=== PATIENT | female | born 1990 | race Caucasian/White ===

== ENCOUNTER 2017-05-07 07:00 | Emergency (ER) | payer OTHER ==
[~2017-05-07] VITALS: Ht 160 cm; Wt 54.5 kg
[~2017-05-07 07:00] MED LIST: ACET50TA PO; PRENTAB55 PO
[2017-05-07] MEDS ORDERED: ASCO25TA PO (07:19)
[2017-05-07] MEDS ORDERED: IRON65TA PO (07:19)
[2017-05-07 07:40] LABS: CONTROL LINE UCG INT CTR LINE PRESENT
[2017-05-07] MEDS ORDERED: KETOROLAC 30 MG/ML VIAL (J1885) IM ONE (08:00)
[2017-05-07] MEDS ORDERED: CIPR-249 PO (09:06)
[2017-05-07] MEDS ORDERED: CIPROFLOXACIN 500 MG TAB PO ONE (09:15)
[2017-05-07 09:16] VITALS: BP 142/71
--- NOTE | 2017-05-08 14:09 | REP ---
Urinary tract sonogram: History: Left lower back pain. Question stone versus pyelonephritis. Possible UTI. Comparison: No comparison study. Findings: Scanning at the level of the urinary bladder shows no abnormality. Renal cortical echogenicity pattern is normal bilaterally and contours are smooth. There is no evidence of hydronephrosis, cyst, mass, or calculus in either kidney. The right kidney measures 10.7 x 4.7 x 3.5 cm. Left renal dimensions are 10.3 x 4.5 x 5.4 cm. Impression: Normal urinary tract sonography. Signed by Michele Multani MD 05/07/2017 08:31 A
== END 2017-05-07 09:24 | disposition home or self-care (01) ==
LOC: M ED 07:00
DX: N39.0 Urinary tract infection, site not specified (principal); Z87.442 Personal history of urinary calculi; Z79.899 Other long term (current) drug therapy

== ENCOUNTER → 2017-06-15 | Outpatient (CLI) | payer OTHER ==
[~2017-06-15] MED LIST changes: +ASCO25TA PO; +CIPR-249 PO; +IRON65TA PO
--- NOTE | 2017-06-15 13:57 | REP ---
BILATERAL DIAGNOSTIC MAMMOGRAM AND BREAST ULTRASOUND: Bilateral mammography performed in the MLO and CC projections. The patient has had left breast pain with nipple inversion. The patient has bilateral breast implants with no evidence of extracapsular rupture. There is mild scattered fibroglandular tissue bilaterally. In the posterior upper outer quadrant of the right breast is an oval nodule, which measures 1.3 cm in maximum diameter. This appears to have a lucent notch and is most consistent with an intramammary lymph node. Real-time sonographic evaluation of the left retroareolar region is performed at the site of nipple inversion. No cystic or solid nodule is seen. In the upper outer quadrant of the right breast at the site of the oval nodule is an intramammary lymph node measuring 1.2 x 0.3 x 0.8 cm. IMPRESSION: ACR 2 benign. No suspicious mass or clustered microcalcifications. No mammographic or sonographic abnormality seen in the left retroareolar region. In the posterior upper outer quadrant of the right breast is a benign intramammary lymph node. No suspicious findings bilaterally. Clinical correlation and followup recommended. BI-RADS/ACR category 2 mammogram. Benign finding(s). Routine annual screening mammography (for women over age 40). This mammogram was interpreted with the aid of an FDA-approved computer-aided detection system. A. Negative x-ray reports should not delay biopsy if a dominant or clinically suspicious mass is present. B. Four to eight percent of cancers are not identified by x-ray. C. Adenosis and dense breasts may obscure an underlying neoplasm. The patient states she/he had a clinical breast exam in May 2017. The patient letter being requested is M2. Signed by Saleem Greene MD 06/15/2017 07:53 P
== END ==
LOC: M RAD 10:49
PROVIDERS: ATTEND Physician Assistant Medical
DX: N64.4 Mastodynia (principal); N64.59 Other signs and symptoms in breast; Z98.82 Breast implant status
CPT/HCPCS: 76642; G0204